=== PATIENT | male | born 1955 | race Caucasian/White ===

== ENCOUNTER 2019-07-12 19:23 | Inpatient (IN) | payer MEDICARE, MEDICAID ==
[~2019-07-12] VITALS: Ht 165.1 cm; Wt 90.9 kg
[~2019-07-12 19:23] MED LIST: DSS100 PO; EZET10TA13 PO; FERR-89 PO; HYD50 PO; LEVO25TA9 PO; MELA3TAB66 PO; METO25XL PO; OMEG-50 PO; QUET300T2 PO; SENN8.6T52 PO; TOPI25 PO; ZIPR20CA2 PO
[2019-07-12] MEDS ORDERED: SODIUM CHLORIDE 0.9% 100 ML ONE (19:42)
[2019-07-12] MEDS ORDERED: IOVERSOL 320 MG/ML 100 ML VIAL ONE (19:42)
[2019-07-12] MEDS ORDERED: BUPR1PAT9 TD (19:43)
[2019-07-12] MEDS ORDERED: LORA-1000 PO (19:43)
[2019-07-12] MEDS ORDERED: MORPHINE SULFATE 2 MG/ML SYRINGE IVP ONE (19:45)
[2019-07-12] MEDS ORDERED: SODIUM CHLORIDE 0.9% 1,000 ML IV ONE (20:00)
[2019-07-12 20:11] LABS: BASOPHILS % (AUTO) 2.3 % (0.0-2.0); EOSINOPHILS % (AUTO) 3.3 % (1.0-6.0); HEMATOCRIT 29.7 % (41-53); HEMOGLOBIN 10.1 g/dL (13.5-17.5); LYMPHOCYTES # (AUTO) 1.7 K/uL (1.0-4.8); LYMPHOCYTES % (AUTO) 32.2 % (22.0-44.0); MEAN CORPUSCULAR HEMOGLOBIN 31.5 pg (26.0-34.0); MEAN CORPUSCULAR VOLUME 93 fL (80-100); MONOCYTES # (AUTO) 0.6 K/uL (0.1-1.0); MONOCYTES % (AUTO) 10.6 % (2.0-9.0); NEUTROPHILS # (AUTO) 2.7 K/uL (1.8-7.7); NEUTROPHILS % (AUTO) 51.6 % (40.0-70.0); PLATELET COUNT (AUTO) 284 K/uL (150-450); RED BLOOD CELL COUNT(AUTO) 3.21 MIL/uL (4.50-5.90); RED CELL DISTRIBUTION WIDTH 14.5 % (11.5-14.5)
[2019-07-12] MEDS ORDERED: VANCOMYCIN HCL 1 GM/D5% WATER 200 ML IV ONE (20:15)
[2019-07-12] MEDS ORDERED: PIPERACILLIN/TAZO 3.375 GM/D5W 50 ML IV ONE (20:15)
[2019-07-12 20:22] LABS: PROTHROMBIN TIME 9.7 SEC (9.4-11.6)
[2019-07-12 20:25] LABS: CALCIUM, TOTAL 8.9 mg/dL (8.8-10.5); CREATININE 1.31 mg/dL (0.60-1.30); POTASSIUM 3.9 mmol/L (3.5-5.1)
[2019-07-12 20:30] LABS: ALBUMIN 2.8 g/dL (3.4-5.0); BILIRUBIN,TOTAL 0.1 mg/dL (0.1-1.0); TOTAL PROTEIN, SERUM 6.7 g/dL (6.4-8.2)
[2019-07-12 20:45] LABS: APPEARANCE,URINE CLEAR (CLEAR); BILIRUBIN,URINE NEGATIVE (NEGATIVE); GLUCOSE, URINE (UA) NEGATIVE (NEGATIVE); KETONES,URINE NEGATIVE (NEGATIVE); LEUKOCYTE ESTERASE ,URINE NEGATIVE (NEGATIVE); NITRATE,URINE NEGATIVE (NEGATIVE); OCCULT BLOOD,URINE NEGATIVE (NEGATIVE); PROTEIN,URINE NEGATIVE (NEGATIVE); UROBILINOGEN,URINE 0.2 mg/dL (<=1.0)
[2019-07-12] MEDS ORDERED: LORazepam 1 MG TABLET PO ONE (21:45)
[2019-07-12] MEDS ORDERED: ACETAMINOPHEN 325 MG TABLET PO PRN (22:15)
[2019-07-12] MEDS ORDERED: 0.9% SODIUM CHLORIDE 10 ML SYRINGE IVP PRN (22:15)
[2019-07-12] MEDS ORDERED: ONDANSETRON HCL 4 MG/2 ML VIAL IVP PRN ×2 (22:15→23:45)
[2019-07-12 23:35] VITALS: BP 126/71
[2019-07-12] MEDS ORDERED: MAGNESIUM HYDROXIDE SUSPENSION 30 ML UDCUP PO PRN (23:45)
[2019-07-12] MEDS ORDERED: BISACODYL 10 MG RECTAL RECTAL SUPPOSITORY PR PRN (23:45)
[2019-07-13] MEDS: HEPARIN SODIUM,PORCINE 5,000 UNITS/ML VIAL SQ SCH ×4 (00:08→23:25)
[2019-07-13] MEDS: ZOLPIDEM TARTRATE 5 MG TABLET PO PRN ×2 (00:08→21:59)
[2019-07-13] MEDS: MORPHINE SULFATE 2 MG/ML SYRINGE IVP PRN ×6 (00:14→23:28)
[2019-07-13 04:41] VITALS: BP 121/62
[2019-07-13 07:07] LABS: BASOPHILS % (AUTO) 1.5 % (0.0-2.0); EOSINOPHILS % (AUTO) 3.4 % (1.0-6.0); HEMATOCRIT 29.1 % (41-53); HEMOGLOBIN 9.7 g/dL (13.5-17.5); LYMPHOCYTES # (AUTO) 1.3 K/uL (1.0-4.8); LYMPHOCYTES % (AUTO) 22.6 % (22.0-44.0); MEAN CORPUSCULAR HEMOGLOBIN 30.8 pg (26.0-34.0); MEAN CORPUSCULAR HGB CONC 33.3 G/dL (31.0-37.0); MEAN CORPUSCULAR VOLUME 93 fL (80-100); MONOCYTES # (AUTO) 0.5 K/uL (0.1-1.0); MONOCYTES % (AUTO) 9.1 % (2.0-9.0); NEUTROPHILS # (AUTO) 3.5 K/uL (1.8-7.7); NEUTROPHILS % (AUTO) 63.4 % (40.0-70.0); PLATELET COUNT (AUTO) 275 K/uL (150-450); RED BLOOD CELL COUNT(AUTO) 3.14 MIL/uL (4.50-5.90); RED CELL DISTRIBUTION WIDTH 14.3 % (11.5-14.5)
[2019-07-13 07:28] LABS: ALANINE AMINOTRANSFERASE 27 U/L (12-78); ALBUMIN 2.6 g/dL (3.4-5.0); ALKALINE PHOSPHATASE 84 U/L (46-116); ANION GAP 10 mmol/L (8-16); ASPARTATE AMINOTRANSFERASE 16 U/L (15-37); BILIRUBIN,TOTAL 0.2 mg/dL (0.1-1.0); CALCIUM, TOTAL 8.7 mg/dL (8.8-10.5); CARBON DIOXIDE 26 mmol/L (22-29); CHLORIDE 102 mmol/L (98-107); CREATININE 1.14 mg/dL (0.60-1.30); GLOMERULAR FILTR. RATE CALC > 60 mL/min (>60); GLUCOSE,RANDOM 98 mg/dL (70-110); SODIUM SERUM 138 mmol/L (136-145); TOTAL PROTEIN, SERUM 6.3 g/dL (6.4-8.2); UREA NITROGEN, BLOOD 12 mg/dL (7-18)
[2019-07-13] MEDS: HYDROCODONE/ACETAMINOPHEN 5-325 MG TABLET PO PRN ×2 (07:33→16:42)
[2019-07-13 08:02] VITALS: BP 117/80
[2019-07-13] MEDS: PANTOPRAZOLE SODIUM 40 MG DR TABLET PO SCH (09:00)
[2019-07-13] MEDS: DOCUSATE SODIUM 100 MG CAPSULE PO SCH ×2 (09:00→19:29)
[2019-07-13] MEDS: TOPIRAMATE 25 MG TABLET PO SCH ×2 (09:00→19:37)
[2019-07-13] MEDS: PIPERACILLIN/TAZO 3.375 GM/D5W 50 ML IV SCH ×3 (10:55→21:50)
[2019-07-13] MEDS: ACETAMINOPHEN 325 MG TABLET PO PRN ×2 (11:02→21:59)
[2019-07-13 11:56] VITALS: BP 120/76
[2019-07-13] MEDS ORDERED: LIDOCAINE 1%/EPI 1:200,000/PF 30 ML VIAL INJ ONE (12:30)
[2019-07-13] MEDS: LORazepam 2 MG/ML VIAL IVP PRN ×2 (14:42→20:38)
[2019-07-13 15:42] VITALS: BP 140/79
[2019-07-13 20:28] VITALS: BP 136/83
[2019-07-13 23:50] VITALS: BP 136/77
[2019-07-14] MEDS ORDERED: MAG HYDROX/AL HYDROX/SIMETH 30 ML SUSP UDCUP PO PRN (00:45)
[2019-07-14] MEDS ORDERED: ALBUTEROL SULFATE 2.5 MG/0.5 ML NEB SOLUTION NEB PRN (00:45)
[2019-07-14] MEDS ORDERED: ZIPR20CA2 PO (01:14)
[2019-07-14] MEDS ORDERED: METO25XL PO (01:14)
[2019-07-14] MEDS ORDERED: HYD50 PO ×2 (01:14)
[2019-07-14] MEDS ORDERED: SENN8.6T52 PO (01:14)
[2019-07-14] MEDS ORDERED: FERR-89 PO (01:14)
[2019-07-14] MEDS ORDERED: EZET10TA13 PO (01:14)
[2019-07-14] MEDS ORDERED: MELA3TAB66 PO (01:14)
[2019-07-14] MEDS ORDERED: LEVO25TA9 PO ×2 (01:14)
[2019-07-14] MEDS: QUEtiapine FUMARATE 300 MG TABLET PO SCH ×3 (01:15→20:40)
[2019-07-14 04:00] VITALS: BP 114/66
[2019-07-14] MEDS: MORPHINE SULFATE 2 MG/ML SYRINGE IVP PRN ×5 (04:02→20:39)
[2019-07-14] MEDS: PIPERACILLIN/TAZO 3.375 GM/D5W 50 ML IV SCH ×4 (04:02→22:57)
[2019-07-14] MEDS: HYDROCODONE/ACETAMINOPHEN 5-325 MG TABLET PO PRN ×4 (06:24→18:36)
[2019-07-14] MEDS: LORazepam 2 MG/ML VIAL IVP PRN ×3 (06:26→18:36)
[2019-07-14 07:53] VITALS: BP 132/82
[2019-07-14] MEDS: TOPIRAMATE 25 MG TABLET PO SCH ×2 (08:21→20:40)
[2019-07-14] MEDS: HEPARIN SODIUM,PORCINE 5,000 UNITS/ML VIAL SQ SCH ×3 (08:22→23:28)
[2019-07-14] MEDS: DOCUSATE SODIUM 100 MG CAPSULE PO SCH ×2 (08:22→20:40)
[2019-07-14] MEDS: PANTOPRAZOLE SODIUM 40 MG DR TABLET PO SCH (08:22)
[2019-07-14] MEDS ORDERED: SODIUM CHLORIDE 0.9% 500 ML IV ONE (09:20)
[2019-07-14 12:03] VITALS: BP 141/81
[2019-07-14 15:34] VITALS: BP 134/73
[2019-07-14 19:29] VITALS: BP 119/68
[2019-07-14 23:29] VITALS: BP 106/58
[2019-07-15] MEDS: PIPERACILLIN/TAZO 3.375 GM/D5W 50 ML IV SCH ×2 (04:08→08:37)
[2019-07-15 04:11] VITALS: BP 111/66
[2019-07-15] MEDS: MORPHINE SULFATE 2 MG/ML SYRINGE IVP PRN ×3 (04:18→12:57)
[2019-07-15] MEDS: LORazepam 2 MG/ML VIAL IVP PRN ×2 (06:54→12:57)
[2019-07-15 08:00] VITALS: BP 114/62
[2019-07-15] MEDS: HEPARIN SODIUM,PORCINE 5,000 UNITS/ML VIAL SQ SCH (08:36)
[2019-07-15] MEDS: PANTOPRAZOLE SODIUM 40 MG DR TABLET PO SCH (08:36)
[2019-07-15] MEDS: DOCUSATE SODIUM 100 MG CAPSULE PO SCH (08:36)
[2019-07-15] MEDS: QUEtiapine FUMARATE 300 MG TABLET PO SCH (08:36)
[2019-07-15] MEDS: TOPIRAMATE 25 MG TABLET PO SCH (08:36)
[2019-07-15 11:00] VITALS: BP 111/64
[2019-07-15] MEDS ORDERED: QUET300T2 PO (15:17)
[2019-07-15] MEDS ORDERED: HYDR-4119 PO (15:19)
== END 2019-07-15 14:25 | DRG 920 ==
LOC: EMS 19:24 → 6N 23:30
PROVIDERS: ADMIT Internal Medicine; ATTEND Internal Medicine
PROC: 0W9F3ZZ Drainage of Abdominal Wall, Percutaneous Approach (ICD-10-PCS; principal; 2019-07-13)
DX: T81.30XA Disruption of wound, unspecified, initial encounter (principal); L02.211 Cutaneous abscess of abdominal wall; D64.9 Anemia, unspecified; N18.9 Chronic kidney disease, unspecified; F41.9 Anxiety disorder, unspecified; Z96.611 Presence of right artificial shoulder joint; Y83.8 Other surgical procedures as the cause of abnormal reaction of the patient, or of later complication, without mention of misadventure at the time of the procedure; E03.9 Hypothyroidism, unspecified; F20.9 Schizophrenia, unspecified; F31.9 Bipolar disorder, unspecified; Y92.89 Other specified places as the place of occurrence of the external cause; Z87.11 Personal history of peptic ulcer disease
CPT/HCPCS: 74177; 87040; 87070; 87081; J1644; J2060; J2270; J2405; J2543; J3370; J3490; J7030; J7040; J7050

== ENCOUNTER 2022-03-24 13:48 | Emergency (ER) | payer MEDICAID, MEDICARE, OTHER ==
[~2022-03-24] VITALS: Ht 165.1 cm; Wt 59.1 kg
[~2022-03-24 13:48] MED LIST changes: -EZET10TA13 PO; +EZET10TA57 PO; -FERR-89 PO; +FERR325T27 PO; -HYD50 PO; +HYDR-4119 PO; +HYDR-4584 PO; -MELA3TAB66 PO; +MELA3TAB89 PO; -METO25XL PO; -OMEG-50 PO; -ZIPR20CA2 PO
[2022-03-24 15:30] LABS: BASOPHILS % (AUTO) 2.4 % (0.0-2.0); EOSINOPHILS % (AUTO) 9.3 % (1.0-6.0); HEMATOCRIT 30.5 % (41-53); HEMOGLOBIN 10.3 g/dL (13.5-17.5); LYMPHOCYTES # (AUTO) 1.4 K/uL (1.0-4.8); LYMPHOCYTES % (AUTO) 31.6 % (22.0-44.0); MEAN CORPUSCULAR HGB CONC 33.7 G/dL (31.0-37.0); MEAN CORPUSCULAR VOLUME 92 fL (80-100); MONOCYTES # (AUTO) 0.6 K/uL (0.1-1.0); NEUTROPHILS # (AUTO) 1.9 K/uL (1.8-7.7); NEUTROPHILS % (AUTO) 42.7 % (40.0-70.0); PLATELET COUNT (AUTO) 196 K/uL (150-450); RED BLOOD CELL COUNT(AUTO) 3.32 MIL/uL (4.50-5.90); RED CELL DISTRIBUTION WIDTH 16.5 % (11.5-14.5)
[2022-03-24 15:42] LABS: ANION GAP 3 mmol/L (8-16); CALCIUM, TOTAL 8.6 mg/dL (8.8-10.5); CARBON DIOXIDE 27 mmol/L (22-29); CHLORIDE 102 mmol/L (98-107); GLUCOSE,RANDOM 116 mg/dL (70-110); POTASSIUM 4.5 mmol/L (3.5-5.1); SODIUM SERUM 132 mmol/L (136-145); UREA NITROGEN, BLOOD 33 mg/dL (7-18)
[2022-03-24 15:43] LABS: GLOMERULAR FILTR. RATE CALC 51 mL/min (>60)
[2022-03-24 15:48] LABS: ALANINE AMINOTRANSFERASE 20 U/L (12-78); ALBUMIN 3.3 g/dL (3.4-5.0); ALKALINE PHOSPHATASE 87 U/L (46-116); ASPARTATE AMINOTRANSFERASE 19 U/L (15-37); BILIRUBIN,TOTAL 0.3 mg/dL (0.1-1.0); TOTAL PROTEIN, SERUM 6.9 g/dL (6.4-8.2)
[2022-03-24 16:52] VITALS: BP 130/62
[2022-03-24] MEDS ORDERED: ACET-66 PO (17:02)
[2022-03-24] MEDS ORDERED: PREG75 PO (17:20)
== END 2022-03-24 17:35 | disposition home or self-care (01) ==
LOC: EMS 13:48
DX: S40.012A Contusion of left shoulder, initial encounter (principal); R07.89 Other chest pain; F20.9 Schizophrenia, unspecified; F31.9 Bipolar disorder, unspecified; I50.9 Heart failure, unspecified; J44.9 Chronic obstructive pulmonary disease, unspecified; Z86.79 Personal history of other diseases of the circulatory system; Z96.611 Presence of right artificial shoulder joint; Z98.890 Other specified postprocedural states; Z87.898 Personal history of other specified conditions; W19.XXXA Unspecified fall, initial encounter; Y93.89 Activity, other specified; Y92.89 Other specified places as the place of occurrence of the external cause; Y99.8 Other external cause status
CPT/HCPCS: 36415; 71045; 73030; 80053; 84484; 85025; 93005; 99285; G0480

== ENCOUNTER 2022-03-26 13:09 | Emergency (ER) | payer OTHER, MEDICARE ==
[~2022-03-26] VITALS: Ht 165.1 cm; Wt 63.6 kg
[~2022-03-26 13:09] MED LIST changes: +ACET-66 PO; +PREG75 PO
[2022-03-26] MEDS ORDERED: DICL100G51 TP (13:27)
[2022-03-26] MEDS ORDERED: ACETAMINOPHEN 325 MG TABLET PO ONE (16:00)
[2022-03-26 16:52] VITALS: BP 131/76
== END 2022-03-26 17:36 | disposition home or self-care (01) ==
LOC: EMS 13:10
DX: S09.90XA Unspecified injury of head, initial encounter (principal); M25.551 Pain in right hip; F31.9 Bipolar disorder, unspecified; I50.9 Heart failure, unspecified; J44.9 Chronic obstructive pulmonary disease, unspecified; F20.9 Schizophrenia, unspecified; Z86.79 Personal history of other diseases of the circulatory system; Z87.898 Personal history of other specified conditions; Z96.611 Presence of right artificial shoulder joint; Z98.890 Other specified postprocedural states; W19.XXXA Unspecified fall, initial encounter; Y93.89 Activity, other specified; Y92.89 Other specified places as the place of occurrence of the external cause; Y99.8 Other external cause status
CPT/HCPCS: 70450; 73502; 99284